=== PATIENT | male | born 1980 | race African-American/Black ===

== ENCOUNTER 2016-04-27 19:34 | Emergency (ER) | payer OTHER ==
[~2016-04-27] VITALS: Ht 182.9 cm; Wt 93.0 kg
[~2016-04-27 19:34] MED LIST: ACET1TAB40 PO; CYCL5TAB PO; IBUP-1542 PO; NAPR-260 PO
[2016-04-27 19:44] VITALS: Ht 182.9 cm; Wt 93.0 kg
--- NOTE | 2016-04-27 22:42 | RADRPT ---
PROCEDURE: XR Right Foot. CLINICAL INDICATION: Pain TECHNIQUE: AP, lateral and oblique views of the right foot was obtained. The images were reviewed on a PACS workstation. COMPARISON: None. FINDINGS: There is minimally displaced transverse fracture mid diaphysis proximal phalanx of the fifth digit. Joint relationships are maintained. Bone mineralization is within normal limits. Soft tissues are unremarkable. IMPRESSION: Minimally displaced transverse fracture mid diaphysis proximal phalanx of the fifth digit. RPTAT: HMVK .Stew Pop MD, Date Time Electronically viewed and signed by .Stew Pop MD, MD on 04/27/2016 22:42 .K/
[2016-04-27 23:35] VITALS: BP 127/67; PULSE 67; RESP 20; TEMP 98.2
--- NOTE | 2016-04-28 01:16 | ERD ---
ER Documentation Chief Complaint Date/Time DATE: 04/28/16 TIME: 01:13 Chief Complaint right foot swelling- kicked the door HPI 36-year-old male with a past medical history colitis presents the ED complaining of right foot pain that started earlier today. Reports that the pain as throbbing and rates it a 10 out of 10. States that he stubbed his right pinky toe onto the door frame. States that he feels like the right pinky toe is swollen. Denies any fever, chills, loss of sensation, loss of range of motion, increased redness. ROS All systems reviewed and are negative except as per history of present illness. Medications Home Meds Active Scripts Acetaminophen-Codeine* (Acetaminophen-Cod #3*) 300-30 Mg Tab, 1 TAB PO Q4H Y for PAIN, #10 TAB Prov:GABRIELLE BOJORQUEZ NP 04/08/15 Naproxen* (Naprosyn*) 500 Mg Tablet, 500 MG PO BID Y for PAIN AND/OR INFLAMMATION, #30 TAB Prov:GABRIELLE BOJORQUEZ NP 04/08/15 Cyclobenzaprine Hcl* (Cyclobenzaprine Hcl*) 5 Mg Tablet, 5 MG PO Q8H Y for PAIN , #10 TAB Prov:ABIOLA MARIE PA-C 02/24/15 Ibuprofen* (Motrin*) 600 Mg Tab, 600 MG PO Q6, #20 TAB Prov:ABIOLA MARIE PA-C 02/24/15 Allergies Allergies: Coded Allergies: No Known Allergy (Unverified , 04/08/15) PMhx/Soc History of Surgery: No Anesthesia Reaction: No Hx Neurological Disorder: No Hx Respiratory Disorders: No Hx Cardiac Disorders: No Hx Psychiatric Problems: No Hx Miscellaneous Medical Probl: No Hx Alcohol Use: No Hx Substance Use: No Hx Tobacco Use: No Physical Exam Vitals Vital Signs Date Time Temp Pulse Resp B/P Pulse Ox O2 Delivery O2 Flow Rate FiO2 04/27/16 23:35 98.2 67 20 127/67 Room Air 04/27/16 19:44 98.3 68 20 160/80 98 Physical Exam Const: [id number], well-nourished. In no acute distress. Head: Atraumatic, normocephalic Eyes: Normal Conjunctiva without injection ENT: Normal external ear, nose and mouth. Neck: Full range of motion. No meningismus. Resp: Clear to auscultation bilaterally. No wheezing, rhonchi, rales, or crackles. No accessory muscle use. No retractions. Cardio: Regular rate and rhythm, no murmurs Skin: No petechiae or rashes Back: No midline tenderness. No CVA tenderness. Ext: No cyanosis, or edema. Tenderness to palpation of the right pinky. Sligtly edematous right pinky toe. No warmth to touch or erythema. Cap refill less than 2 seconds. Distal pulses intact bilaterally. Neur: Awake and alert. Normal gait and coordination. Muscle strength 5/5. Sensation intact bilaterally. Psych: Normal Mood and Affect Procedures/MDM This is a 36-year-old male with a past medical history of colitis presents the ED complaining of a right pinky toe injury. Patient is afebrile nontoxic appearing. At this time a right foot x-ray was ordered to further evaluate patient. PROCEDURE: XR Right Foot. CLINICAL INDICATION: Pain TECHNIQUE: AP, lateral and oblique views of the right foot was obtained. The images were reviewed on a PACS workstation. COMPARISON: None. FINDINGS: There is minimally displaced transverse fracture mid diaphysis proximal phalanx of the fifth digit. Joint relationships are maintained. Bone mineralization is within normal limits. Soft tissues are unremarkable. IMPRESSION: Minimally displaced transverse fracture mid diaphysis proximal phalanx of the fifth digit. Patient is placed in a elio tape splint for his minimally displaced transverse fracture mid diaphysis proximal phalanx of the fifth digit.. Patient denied wanting crutches. Splint Assessment: Neurovascularly intact pre and post elio tape placement with good fit. Patient's extremity symptoms have stabilized while they have been evaluated in the department and are appropriate for outpatient follow up. No evidence of dislocations, compartment syndrome, neurologic injury, vascular injury, open joint, open fracture, tendon laceration, septic arthritis, osteomyelitis, DVT, foreign body, or other emergent conditions. Discharge medications: Ibuprofen Follow up with primary care physician in 1-2 days. Instructed patient to return to the ED sooner for any worsening symptoms. Patient's questions were answered. Patient understood and agreed with discharge plan. Patient discharged stable. Departure Diagnosis: Primary Impression: Toe fracture, right Encounter type: initial encounter Toe: lesser toe Fracture type: closed Phalanx: distal Fracture alignment: nondisplaced Qualified Code: S92.534A - Closed nondisplaced fracture of distal phalanx of lesser toe of right foot, initial encounter Condition: Stable Patient Instructions: Fracture, Toe [Closed] Referrals: [facility] YOU HAVE RECEIVED A MEDICAL SCREENING EXAM AND THE RESULTS INDICATE THAT YOU DO NOT HAVE A CONDITION THAT REQUIRES URGENT TREATMENT IN THE EMERGENCY DEPARTMENT. FURTHER EVALUATION AND TREATMENT OF YOUR CONDITION CAN WAIT UNTIL YOU ARE SEEN IN YOUR DOCTORS OFFICE WITHIN THE NEXT 1-2 DAYS. IT IS YOUR RESPONSIBILITY TO MAKE AN APPOINTMENT FOR FOLOW-UP CARE. IF YOU HAVE A PRIMARY DOCTOR --you should call your primary doctor and schedule an appointment IF YOU DO NOT HAVE A PRIMARY DOCTOR YOU CAN CALL OUR PHYSICIAN REFERRAL HOTLINE AT IF YOU CAN NOT AFFORD TO SEE A PHYSICIAN YOU CAN CHOSE FROM THE FOLLOWING [facility] [address] [facility] [address] [facility]. [facility] [address] [facility] [address] [facility] [facility] [address] [facility]. [facility]. [address] [facility]. [facility] YOU HAVE RECEIVED A MEDICAL SCREENING EXAM AND THE RESULTS INDICATE THAT YOU DO NOT HAVE A CONDITION THAT REQUIRES URGENT TREATMENT IN THE EMERGENCY DEPARTMENT. FURTHER EVALUATION AND TREATMENT OF YOUR CONDITION CAN WAIT UNTIL YOU ARE SEEN IN YOUR DOCTORS OFFICE WITHIN THE NEXT 1-2 DAYS. IT IS YOUR RESPONSIBILITY TO MAKE AN APPOINTMENT FOR FOLOW-UP CARE. IF YOU HAVE A PRIMARY DOCTOR --you should call your primary doctor and schedule and appointment IF YOU DO NOT HAVE A PRIMARY DOCTOR YOU CAN CALL OUR PHYSICIAN REFERRAL HOTLINE AT . IF YOU CAN NOT AFFORD TO SEE A PHYSICIAN YOU CAN CHOSE FROM THE FOLLOWING [facility] INSTITUTIONS[facility] [address] [place] [address] [facility] [address] [place] [address] [facility] [address] [place] [address] [facility] URGENT CARE/SPECIALTIES Additional Instructions: FOLLOW UP WITH YOUR PRIMARY CARE PHYSICIAN TOMORROW. Return to this facility if you are not improving as expected. CARLOS PEARSON PA-C Apr 28, 2016 01:16
== END 2016-04-27 23:42 | disposition home or self-care (01) ==
LOC: FTE 19:34
DX: S92.511A Displaced fracture of proximal phalanx of right lesser toe(s), initial encounter for closed fracture (principal); W23.1XXA Caught, crushed, jammed, or pinched between stationary objects, initial encounter; Y92.9 Unspecified place or not applicable
CPT/HCPCS: 73630; Z7502

== ENCOUNTER 2017-11-25 17:27 | Emergency (ER) | END 2017-11-25 19:22 | disposition home or self-care (01) ==